=== PATIENT | female | born 1950 | race Caucasian/White ===

== ENCOUNTER 2022-07-20 12:53 | Outpatient (CLI) | payer MEDICARE, SELFPAY ==
--- NOTE | ~2022-07-20 | MR_ITS ---
EXAMINATION: MR lumbar spine wo con DATE: 07/20/2022 13:30 INDICATION: Low back pain, unspecified. Left leg pain. TECHNIQUE: Magnetic resonance imaging (MRI) of the lumbar spine was performed without intravenous con trast. Sequences included sagittal T2-weighted FSE, sagittal T2-weighted FS FSE, sagittal T1-weighted FSE, and axial T2-weighted FSE. COMPARISON: None FINDINGS: There is 8 degrees dextrocurvature of lumbar spine. L5 is a transitional segment. There is a hemangioma in T12 vertebral body. There are Schmorl's nodes of the superior endplates of L2 on L3. The intervertebral disc heights are normal. The distal spinal cord signal intensity is normal. The co nus medullaris is at L1. The following disc levels are specifically discussed: L1-L2: The disc does not extend beyond the endplate margin. There is mild bilateral facet joint osteo arthritis. There is no neural foraminal stenosis. There is no central canal stenosis. L2-L3: The disc is bulging. There is moderate bilateral facet joint osteoarthritis. There is mild deidre ateral neural foraminal stenosis. There is mild central canal stenosis. L3-L4: The disc is bulging. There is moderate bilateral facet joint osteoarthritis. There is mild deidre ateral neural foraminal stenosis. There is mild central canal stenosis. L4-L5: The disc is bulging. There is severe bilateral facet joint osteoarthritis. There is mild bilat eral neural foraminal stenosis. There is mild central canal stenosis. L5-S1: The disc does not extend beyond the endplate margin. There is no facet joint osteoarthritis. T here is no neural foraminal stenosis. There is no central canal stenosis. IMPRESSION: 1. Mild lumbar spondylosis. Reviewed, dictated and finalized at location A. [facility] IMPRESSION: 1. Mild lumbar spondylosis.
== END 2022-07-20 12:54 | disposition home or self-care (01) ==
PROVIDERS: PCP Internal Medicine; Visit Provider Internal Medicine
DX: M54.50 Low back pain, unspecified (principal); M43.06 Spondylolysis, lumbar region
CPT/HCPCS: 72148

== ENCOUNTER 2022-12-01 08:56 | Emergency (ER) | payer MEDICARE, SELFPAY ==
--- NOTE | 2022-12-01 09:06 | ED.URI ---
HPI - URI/Sore Throat General Chief Complaint: Upper Respiratory Infection Stated Complaint: Cough/Sore Throat Source: patient and RN notes reviewed History of Present Illness HPI Narrative: 71-year-old female presents to urgent care with complaints of worsening congestion and facial pressure for the last 4 days. Patient reports a worsening cough as well. Patient states her cough is productive at times. Patient reports associated bilateral ear fullness And a sore throat when she coughs. Patient denies any fevers, chills, vomiting, chest pain, shortness of breath. Patient has been taking an allergy pill and Tylenol at home with minimal relief. Some parts of this dictation were generated by voice recognition software and may contain typographical and/or grammatical inaccuracies. Related Data Home Medications Medication Instructions Recorded Confirmed atenolol 25 mg tablet 25 mg PO DAILY 12/01/22 12/01/22 escitalopram oxalate 20 mg tablet 20 mg PO DAILY 12/01/22 12/01/22 fluticasone fur. 100 mcg-umeclid 1 inh inhalation DIRECTED 12/01/22 12/01/22 62.5 mcg-vilant 25 mcg inhalat.powder (Trelegy Ellipta) gabapentin 100 mg capsule 100 mg PO DIRECTED 12/01/22 12/01/22 hydrochlorothiazide 12.5 mg tablet 12.5 mg PO DAILY 12/01/22 12/01/22 losartan 100 mg tablet 100 mg PO DAILY 12/01/22 12/01/22 lovastatin 40 mg tablet 40 mg PO DAILY 12/01/22 12/01/22 omeprazole 40 mg capsule,delayed 40 mg PO DAILY 12/01/22 12/01/22 release valacyclovir 500 mg tablet mg 12/01/22 Allergies Allergy/AdvReac Type Severity Reaction Status Date / Time Penicillins Allergy Intermediate Other Verified 12/01/22 09:10 Review of Systems Review of Systems: CONSTITUTIONAL: Denies fever, chills, or sweats. EYES: Denies visual changes, redness, or discharge. ENT: congestion, bilateral ear fullness, pressure in face CARDIOVASCULAR: Denies chest pain, palpitations, or edema. RESPIRATORY: cough, productive at times. GASTROINTESTINAL: Denies abdominal pain, nausea, vomiting, or diarrhea. GENITOURINARY: Denies dysuria or hematuria. SKIN: Denies rash or itching. MUSCULOSKELETAL: Denies back pain, joint pain, or myalgia. NEUROLOGIC: Denies headache, numbness, or weakness. Pertinent positives per HPI. PMFSH Comments At the time of my signature, I reviewed and agree with the nursing past medical, surgical, social, and family history. There is no relevant family history pertinent to the patient complaint. Exam Narrative: GENERAL: This is a well-nourished, well-developed patient, in no apparent distress. HEAD: normocephalic, atraumatic. EYES: PERRL. Sclera clear/white. Vision is grossly intact. EARS: External ears normal, auditory canals clear and without drainage, TMs normal without perforation. Hearing grossly intact. NOSE: External nose normal with no obvious nasal discharge, nares without redness, no rhinorrhea. THROAT: Mucous membranes moist, posterior pharynx clear. NECK: Neck supple, non-tender without lymphadenopathy, masses or thyromegaly. CARDIOVASCULAR: Regular rate and rhythm without murmurs, gallops, or rubs. RESPIRATORY: Clear to auscultation. Breath sounds equal bilaterally. No wheezes, rales, or rhonchi. Pt has a dry cough frequently. GASTROINTESTINAL: Abdomen soft, non-tender, nondistended. Bowel sounds are active. No hepato-splenomegaly, or palpable masses. No guarding. SKIN: warm, intact with no suspicious lesions or rash, good texture and turgor. NEURO: awake, alert, and oriented to person, place and time. There were no obvious focal neurologic abnormalities. EXTREMITIES: No clubbing, cyanosis, or edema. No joint tenderness, effusion, or edema noted. BACK: Nontender without deformity or crepitance. No flank tenderness. Course Course Level of Care: Express Care Visit Vital Signs Vital signs: Reviewed MDM - URI/Sore Throat MDM Narrative Medical decision making narrative: Take steroids as directed. May use the inhaler
[2022-12-01 09:09] VITALS: BP 125/68; PULSE 78; RESP 12; TEMP 36.4; O2SAT 96
[2022-12-01] MEDS: predniSONE 20 MG TABLET 60 MG PO (09:24)
== END 2022-12-01 09:26 | disposition home or self-care (01) ==
PROVIDERS: Emergency Provider Nurse Practitioner Family; PCP Internal Medicine
DX: J40 Bronchitis, not specified as acute or chronic (principal); J01.90 Acute sinusitis, unspecified; E78.00 Pure hypercholesterolemia, unspecified; I10 Essential (primary) hypertension; J44.9 Chronic obstructive pulmonary disease, unspecified; K21.9 Gastro-esophageal reflux disease without esophagitis; M19.90 Unspecified osteoarthritis, unspecified site
CPT/HCPCS: 99213; G0463; J7512

== ENCOUNTER 2023-02-23 12:49 | Emergency (ER) | payer MEDICARE, SELFPAY ==
[2023-02-23 13:08] VITALS: BP 121/56; PULSE 62; RESP 16; TEMP 36.2; O2SAT 98
--- NOTE | 2023-02-23 13:22 | ED.SKABFB ---
HPI - Skin/Abscess/Foreign Bdy General Chief complaint: Skin/Abscess/Foreign Body Stated complaint: insect bite Time Seen by Provider: 02/23/23 13:15 Source: patient and RN notes reviewed Mode of arrival: ambulatory Limitations: no limitations History of Present Illness HPI narrative: Patient presents today complaining of an insect sting to her right upper arm 3 days ago. States the area of redness gaze getting larger and she reports mild pain and some itching. She applied some Prid Salve of without relief. Related Data Home Medications Medication Instructions Recorded Confirmed atenolol 25 mg tablet 25 mg PO DAILY 12/01/22 12/01/22 escitalopram oxalate 20 mg tablet 20 mg PO DAILY 12/01/22 12/01/22 fluticasone fur. 100 mcg-umeclid 1 inh inhalation DIRECTED 12/01/22 12/01/22 62.5 mcg-vilant 25 mcg inhalat.powder (Trelegy Ellipta) losartan 100 mg tablet 100 mg PO DAILY 12/01/22 12/01/22 lovastatin 40 mg tablet 40 mg PO DAILY 12/01/22 12/01/22 valacyclovir 500 mg tablet mg 12/01/22 Allergies Allergy/AdvReac Type Severity Reaction Status Date / Time Penicillins Allergy Intermediate Hives Verified 02/23/23 13:27 Review of Systems Review of Systems: CONSTITUTIONAL: Denies body aches, fever, chills, or sweats. EYES: Denies visual changes, redness, or discharge. ENT: Denies rhinorrhea, congestion, sore throat, or otalgia. CARDIOVASCULAR: Denies chest pain, palpitations, or edema. RESPIRATORY: Denies cough or dyspnea. GASTROINTESTINAL: Denies abdominal pain, nausea, vomiting, or diarrhea. GENITOURINARY: Denies dysuria or hematuria. SKIN: + left upper arm redness and itching MUSCULOSKELETAL: Denies back pain, joint pain, or myalgia. NEUROLOGIC: Denies headache, numbness, tingling, or weakness. PSYCH: Denies depression or anxiety. PMFSH Comments At time of signature, I have reviewed and agree with nursing past medical, surgical, social and family history unless otherwise noted. Please see nursing chart for further information. There is no relevant family history pertinent to the presenting complaint Exam Narrative: GENERAL: Well-appearing, well-nourished, and in no acute distress. HEAD: Normocephalic, atraumatic. EYES: EOMI. No redness or drainage. Conjunctivae normal. ENT: Mucous membranes pink and moist. NECK: Normal AROM. CHEST: No respiratory distress. EXTREMITIES: Normal range of motion. No edema. SKIN: Warm, dry. Capillary refill normal. Normal skin turgor. 8.5x6 cm area of erythema and mild induration to the inner left upper arm with tiny scab in the center that is tender to palpation. No fluctuance noted. No edema noted. NEURO: No focal deficits. Alert and oriented x3. Gait steady. PSYCH: Normal affect. No signs of depression or anxiety. Course Course Level of Care: Express Care Visit Vital Signs Vital signs: Vital Signs Temperature 97.2 F L 02/23/23 13:08 Pulse Rate 62 02/23/23 13:08 Respiratory Rate 16 02/23/23 13:08 Blood Pressure 121/56 L 02/23/23 13:08 Pulse Oximetry 98 02/23/23 13:08 Oxygen Delivery Room Air 02/23/23 13:08 Temperature 97.2 F L 02/23/23 13:08 Pulse Rate 62 02/23/23 13:08 Respiratory Rate 16 02/23/23 13:08 Blood Pressure 121/56 L 02/23/23 13:08 Pulse Oximetry 98 02/23/23 13:08 Oxygen Delivery Room Air 02/23/23 13:08 Reviewed. Pt has been instructed to follow up with her PCP regarding her elevated blood pressure today. MDM - Skin/Abscess/Foreign Bdy MDM Narrative Medical decision making narrative: Patient's exam consistent with infected insect sting. Will place her on a course of Keflex. Instructed her to use topical Benadryl for itching and an oral antihistamine for allergic reaction. Anticipatory guidance given. Differential Diagnosis Differential diagnosis: Likely abscess of skin or subcutaneous tissue, cellulitis, insect bites and other (Insect sting, allergic reaction) Critical Care Time Critical Car
== END 2023-02-23 13:34 | disposition home or self-care (01) ==
PROVIDERS: Emergency Provider Nurse Practitioner; PCP Internal Medicine
DX: S40.862A Insect bite (nonvenomous) of left upper arm, initial encounter (principal); L08.9 Local infection of the skin and subcutaneous tissue, unspecified; W57.XXXA Bitten or stung by nonvenomous insect and other nonvenomous arthropods, initial encounter; E78.00 Pure hypercholesterolemia, unspecified; I10 Essential (primary) hypertension; J44.9 Chronic obstructive pulmonary disease, unspecified; K21.9 Gastro-esophageal reflux disease without esophagitis; M19.90 Unspecified osteoarthritis, unspecified site
CPT/HCPCS: 99213; G0463

== ENCOUNTER 2023-08-03 08:20 | Emergency (ER) | payer MEDICARE, SELFPAY ==
[2023-08-03 08:32] VITALS: BP 127/57; PULSE 80; RESP 16; TEMP 36.7; O2SAT 99
--- NOTE | 2023-08-03 08:43 | ED.URI ---
HPI - URI/Sore Throat General Chief Complaint: Upper Respiratory Infection Stated Complaint: loss of voice,cough Time Seen by Provider: 08/03/23 08:43 Source: patient Mode of arrival: ambulatory Limitations: no limitations History of Present Illness HPI Narrative: 72-year-old female presents with complaint of cough, drainage, hoarse voice for 3 days. Has been in and out of a hospital due to recent family member dying. Deniest CP and SOB. Also reports sore throat. AFebrile. All systems reviewed and negative except as noted above. Related Data Home Medications Medication Instructions Recorded Confirmed atenolol 25 mg tablet 25 mg PO DAILY 12/01/22 08/03/23 escitalopram oxalate 20 mg tablet 20 mg PO DAILY 12/01/22 08/03/23 fluticasone fur. 100 mcg-umeclid 1 inh inhalation DIRECTED 12/01/22 08/03/23 62.5 mcg-vilant 25 mcg inhalat.powder (Trelegy Ellipta) losartan 100 mg tablet 100 mg PO DAILY 12/01/22 08/03/23 lovastatin 40 mg tablet 40 mg PO DAILY 12/01/22 08/03/23 valacyclovir 500 mg tablet 500 mg PO DAILY 12/01/22 08/03/23 colestipol 1 gram tablet 1 g PO DAILY 08/03/23 08/03/23 fluticasone fur. 100 mcg-umeclid See Rx Instructions .Route .COMPLEX 08/03/23 08/03/23 62.5 mcg-vilant 25 mcg inhalat.powder (Trelegy Ellipta) hydrochlorothiazide 12.5 mg tablet 12.5 mg PO DAILY 08/03/23 08/03/23 nortriptyline 10 mg capsule 10 mg PO DAILY 08/03/23 08/03/23 omeprazole 40 mg capsule,delayed 40 mg PO DAILY 08/03/23 08/03/23 release Allergies Allergy/AdvReac Type Severity Reaction Status Date / Time Penicillins Allergy Intermediate Hives Verified 08/03/23 08:38 Review of Systems Review of Systems: CONSTITUTIONAL: Denies fever, chills, or sweats. EYES: Denies visual changes, redness, or discharge. ENT: reports rhinorrhea, congestion, sore throat, postnasal drainage. Deniesotalgia. CARDIOVASCULAR: Denies chest pain, palpitations, or edema. RESPIRATORY: reports cough . Denies dyspnea. GASTROINTESTINAL: Denies abdominal pain, nausea, vomiting, or diarrhea. GENITOURINARY: Denies dysuria or hematuria. SKIN: Denies rash or itching. MUSCULOSKELETAL: Denies back pain, joint pain, or myalgia. NEUROLOGIC: Denies headache, numbness, or weakness. PSYCHIATRIC: Denies anxiety or depression. All other systems reviewed are negative, except as documented in HPI. PMFSH Comments At time of signature, agree with nursing past medical, surgical, social and family history. There is no relevant family history pertinent to the presenting complaint. Exam Narrative: GENERAL: This is a well-nourished, well-developed patient, in no apparent distress. HEAD: normocephalic, atraumatic. EYES: PERRL. Sclera clear/white. Vision is grossly intact. EARS: External ears normal, auditory canals clear and without drainage, TMs normal without perforation. Hearing grossly intact. NOSE: External nose normal with clear nasal drainage, no significant erythema or swelling to nares. THROAT: Mucous membranes moist, Postnasal drainage without erythema or swelling. NECK: Neck supple, non-tender without lymphadenopathy, masses or thyromegaly. CARDIOVASCULAR: Regular rate and rhythm without murmurs, gallops, or rubs. RESPIRATORY: Clear to auscultation. Breath sounds equal bilaterally. No wheezes, rales, or rhonchi. SKIN: warm, Dry, intact with no suspicious lesions or rash, good texture and turgor. NEURO: awake, alert, and oriented to person, place and time. There were no obvious focal neurologic abnormalities. EXTREMITIES: No joint tenderness, effusion, or edema noted. Course Course Level of Care: Express Care Visit Vital Signs Vital signs: Vital Signs Temperature 36.7 C 08/03/23 08:32 Pulse Rate 80 08/03/23 08:32 Respiratory Rate 16 08/03/23 08:32 Blood Pressure 127/57 L 08/03/23 08:32 Pulse Oximetry 99 08/03/23 08:32 Oxygen Delivery Room Air 08/03/23 08:32 Temperature 36.7 C 08/03/23 08:32 Pulse Rate 80
== END 2023-08-03 09:24 | disposition home or self-care (01) ==
PROVIDERS: Emergency Provider Nurse Practitioner Family; PCP Internal Medicine
DX: J06.9 Acute upper respiratory infection, unspecified (principal); Z20.822 Contact with and (suspected) exposure to COVID-19; E78.00 Pure hypercholesterolemia, unspecified; I10 Essential (primary) hypertension; J44.9 Chronic obstructive pulmonary disease, unspecified; K21.9 Gastro-esophageal reflux disease without esophagitis; M19.90 Unspecified osteoarthritis, unspecified site
CPT/HCPCS: 87081; 87426; 87880; 99213; C9803; G0463